=== PATIENT | female | born 1995 | race American Indian/Alaskan Native ===

== ENCOUNTER 2017-11-10 07:35 | Outpatient (CLI) | payer MEDICAID ==
[2017-11-10 07:58] VITALS: BP 128/78
--- NOTE | 2017-11-10 08:19 | History and Physical Report ---
History of Present Illness Date of examination: 11/10/17 Chief complaint: Twin gestation with ruptured membranes History of present illness: 22-year-old 012 at 36 weeks presents with ruptured membranes, she is a [facility] patient who presents via EMS. Essential history patient with contractions for a couple of days, ruptured this morning. care complicated by Churchill-Di twin gestation otherwise no issues. In triage, both babies category 1. She is having 2-3 contractions per 10 but not in pain or severe discomfort. On exam, she is 2 cm dilated. Baby is cephalic baby B breech. Patient and her mother insists on being transferred to [facility] where her doctor is. Vitals are stable at this time Past History Past Medical History: no pertinent history Past Surgical History: tonsillectomy, section (x 2) [employer] History: denies: fibroids, gonorrhea, hepatitis B, hepatitis C, herpes, HIV , syphilis Social history: , full code. denies: smoking, alcohol abuse, IV drug use - Obstetrical History Expected Date of Delivery: 12/03/17 Actual Gestation: 36 Week(s) 5 Day(s) : 4 Para: 2 Medications and Allergies Allergies Allergy/AdvReac Type Severity Reaction Status Date / Time No Known Allergies Allergy Unverified 11/10/17 07:55 Review of Systems Constitutional: no fever, no chills, no fatigue, no weakness, no chronic headaches Cardiovascular: no chest pain, no orthopnea, no palpitations, no syncope, no lightheadedness, no shortness of breath, no dyspnea on exertion, no high blood pressure, no decreased exercise tolerance Respiratory: no cough, no cough with sputum, no shortness of breath, no dyspnea on exertion Breasts: deferred Gastrointestinal: no abdominal pain, no nausea, no vomiting Genitourinary: leakage of fluid, contractions, no vaginal bleeding - Vital Signs Vital signs: Vital Signs Temp Pulse Resp BP Pulse Ox 98.5 F 84 22 128/78 97 11/10/17 07:56 11/10/17 07:56 11/10/17 07:56 11/10/17 07:56 11/10/17 07:56 Temp Pulse Resp BP Pulse Ox 98.5 F 84 22 128/78 97 11/10/17 07:56 11/10/17 07:56 11/10/17 07:56 11/10/17 07:56 11/10/17 07:56 - Physical Exam Cardiovascular: Regular rate, Normal S1, Normal S2 Lungs: Positive: Clear to auscultation, Normal air movement Abdomen: Positive: normal appearance, soft. Negative: distention, tenderness, guarding, rigidity Uterus: Positive: enlarged (Difficult to examine due to body habitus). Negative : tender Results All other labs normal. Assessment and Plan A: 22-year-old at 36+5 weeks Churchill-Di twins with ruptured membranes -Cat 1 tracing x 2 -2 prior C-sections P: -She insists on being transferred from [place] to [facility]. Spent some time discussing with her and her mother about the risks to her and her baby, advised we proceed with here at [facility], patient refuses. She provided contact number to [facility] physician in [facility]. -As patient's vitals currently stable, she is 2 cm with contractions which are not painful, will transfer patient to her physician. Spoke with Dr. David Minaya [facility] who was accepted the patient. -Will transfer patient [facility] now - Patient Problems (1) 36 to 37 weeks gestation of Current Visit: Yes Status: Acute (2) Twin gestation in third trimester Current Visit: Yes Status: Acute (3) History of 2 sections Current Visit: Yes Status: Acute (4) Ruptured, membranes, premature Current Visit: Yes Status: Acute
[2017-11-10] MEDS ORDERED: LACTATED RINGERS 500 ML IV ONE (08:26)
--- NOTE | 2017-11-10 09:50 | Event Note ---
Date: 11/10/17 Walked in to triage to see another patient, a grand multipara who was 6 cm dilated. Was approached by Ms Gianni (patient's /partner) who apparently arrived. He wanted to discuss possibly canceling transfer, he states that he lives an hour away and delivering at this hospital will be more convenient for him. Walked over to patient to ask about 's request, she wanted to know if she stayed with the baby delivered today. I told her that the baby will be delivered today here or even if she is transferred to [facility]. I explained that the EMS is 2 minutes away. I then advised them that I will deal with the grand multipara in labor and outcome back later to discuss this further. On returning back to triage, it appears EMS had already arrived and patient was being wheeled out of the hospital.
== END 2017-11-10 09:35 | disposition other institution (70) ==
LOC: TRG 07:35
PROVIDERS: ATTEND Obstetrics & Gynecology Gynecology
DX: O47.03 False labor before 37 completed weeks of gestation, third trimester (principal); Z3A.36 36 weeks gestation of pregnancy
CPT/HCPCS: 59025

== ENCOUNTER 2020-07-31 22:21 | Emergency (ER) | payer MEDICAID, OTHER ==
[2020-07-31] MEDS ORDERED: LORazepam 2 MG/ML VIAL IV ONE (22:39)
[2020-07-31] MEDS ORDERED: ONDANSETRON 4 MG/2 ML INJ IV ONE (22:39)
[2020-07-31 22:41] VITALS: BP 115/63
[2020-07-31] MEDS ORDERED: SODIUM CHLORIDE 0.9% 1000 ML 1,000 ML IV ONE (22:41)
--- NOTE | 2020-07-31 22:58 | Emergency Department Report ---
ED General Adult HPI - General Chief complaint: Abdominal Pain Stated complaint: VOMITING Time Seen by Provider: 07/31/20 22:35 Source: patient Mode of arrival: Stretcher Limitations: No Limitations - History of Present Illness Initial comments: Patient is a 24-year-old female who presents with nausea and vomiting that is been going on since 8 PM patient states that she has vomited multiple times there is no blood in the vomit she denies having any change in her bowel movements no diarrhea. She denies having any abdominal pain but she feels a pressure in her chest. Patient states that she has 5 children and has had C- sections before but no medical problems she denies having any dysuria or any vaginal bleeding. Patient also admits to smoking marijuana she last smoked around 2 PM Severity scale (0 -10): 1 - Related Data Previous Rx's Medication Instructions Recorded Last Taken Type Ondansetron [Zofran Odt] 4 mg PO Q8HR #21 tab.rapdis 08/01/20 Unknown Rx Allergies Allergy/AdvReac Type Severity Reaction Status Date / Time No Known Allergies Allergy Unverified 11/10/17 07:55 ED Review of Systems ROS: Stated complaint: VOMITING Other details as noted in HPI Constitutional: denies: chills, fever Eyes: denies: eye pain, eye discharge, vision change ENT: denies: ear pain, throat pain Respiratory: denies: cough, shortness of breath, wheezing Cardiovascular: denies: chest pain, palpitations Endocrine: no symptoms reported Gastrointestinal: denies: abdominal pain, nausea, diarrhea Genitourinary: denies: urgency, dysuria, discharge Musculoskeletal: denies: back pain, joint swelling, arthralgia Skin: denies: rash, lesions Neurological: denies: headache, weakness, paresthesias Psychiatric: denies: anxiety, depression Hematological/Lymphatic: denies: easy bleeding, easy bruising ED Past Medical Hx - Past Medical History Hx Hypertension: No Hx Diabetes: No Hx Deep Vein Thrombosis: No Hx Renal Disease: No Hx Sickle Cell Disease: No Hx Seizures: No Hx Asthma: No Hx HIV: No - Surgical History Additional Surgical History: C-Sections x4 oral sugery - Social History Smoking Status: Never Smoker - Medications Home Medications: Home Medications Medication Instructions Recorded Confirmed Last Taken Type Ondansetron [Zofran Odt] 4 mg PO Q8HR #21 tab.rapdis 08/01/20 Unknown Rx ED Physical Exam - General Limitations: No Limitations General appearance: alert, in no apparent distress - Head Head exam: Present: atraumatic, normocephalic - Eye Eye exam: Present: normal appearance - ENT ENT exam: Present: mucous membranes moist - Neck Neck exam: Present: normal inspection - Respiratory Respiratory exam: Present: normal lung sounds bilaterally. Absent: respiratory distress - Cardiovascular Cardiovascular Exam: Present: regular rate, normal rhythm. Absent: systolic murmur, diastolic murmur, rubs, gallop - GI/Abdominal GI/Abdominal exam: Present: soft, normal bowel sounds - Extremities Exam Extremities exam: Present: normal inspection - Back Exam Back exam: Present: normal inspection - Neurological Exam Neurological exam: Present: alert, oriented X3 - Psychiatric Psychiatric exam: Present: normal affect, normal mood - Skin Skin exam: Present: warm, dry, intact, normal color. Absent: rash ED Course Vital Signs 07/31/20 22:39 Temperature 98.7 F Pulse Rate 69 Respiratory 18 Rate Blood Pressure 115/63 [Right] O2 Sat by Pulse 100 Oximetry ED Medical Decision Making - Lab Data Result diagrams: 07/31/20 23:26 07/31/20 23:26 - Medical Decision Making Cdx: Marijuana intoxication ddx: Dehyration, Anxiety, GERD I will get blood work, IV fluids, cxr and will re-evaluate the patient Critical care attestation.: If time is entered above; I have spent that time in minutes in the direct care of this critically ill patient, excluding procedure time. ED Disposition Clinical Impression: Marijuana abuse Nausea and vomiting Qualifiers: Vomiting type: unspecified Vomiting Intractability: unspecified Qualified Code(s): R11.2 - Nausea with vomiting, unspecified Disposition: DC-01 TO HOME OR SELFCARE Is pt being admited?: No Does the pt Need Aspirin: No Condition: Stable Instructions: Abdominal Pain (ED) Prescriptions: Ondansetron [Zofran Odt] 4 mg PO Q8HR #21 tab.rapdis Referrals: PRIMARY CARE,MD [Primary Care Provider] - 3-5 Days
[2020-07-31 23:46] LABS: Basophils % (Auto) 0.2 % (0.0-1.8); Eosinophils # (Auto) 0.1 K/mm3 (0.0-0.4); Eosinophils % (Auto) 0.9 % (0.0-4.3); Hematocrit 37.8 % (30.3-42.9); Hemoglobin 12.8 gm/dl (10.1-14.3); Lymphocytes # (Auto) 2.1 K/mm3 (1.2-5.4); Lymphocytes % (Auto) 17.4 % (13.4-35.0); Mean Corpuscular HGB Conc 34 % (30-34); Mean Corpuscular Volume 94 fl (79-97); Monocytes # (Auto) 0.6 K/mm3 (0.0-0.8); Monocytes % (Auto) 4.9 % (0.0-7.3); Platelet Count 212 K/mm3 (140-440); Red Blood Count 4.03 M/mm3 (3.65-5.03); Red Cell Distribution Width 13.6 % (13.2-15.2)
[2020-08-01 00:21] LABS: Alanine Aminotransferase 18 units/L (7-56); Albumin 3.8 g/dL (3.9-5); Blood Urea Nitrogen 13 mg/dL (7-17); Calcium 8.8 mg/dL (8.4-10.2); Hemolysis Index 28
[2020-08-01 00:24] LABS: BUN/Creatinine Ratio 22
--- NOTE | 2020-08-01 01:00 | XRay Report ---
CHEST 1 VIEW 0028 INDICATION / CLINICAL INFORMATION: nausea COMPARISON: None available. FINDINGS: SUPPORT DEVICES: None HEART / MEDIASTINUM: No significant abnormality. LUNGS / PLEURA: Detail is low due to the patient's size. Poor degree of inspiration is seen. No obvio us acute infiltrates are noted. No pneumothorax. ADDITIONAL FINDINGS: No significant additional findings. IMPRESSION: No significant acute abnormality Signer Name: Alexander Carvalho MD Signed: 08/01/2020 12:56 AM Workstation Name: [id number]
[2020-08-01] MEDS ORDERED: FAMOTIDINE 20 MG TAB PO ONE (01:45)
[2020-08-01] MEDS ORDERED: ALUM-MAG HYDROXIDE-SIMETHICONE 200-200-20MG/5ML ORAL LIQD 30 ML PO ONE (01:45)
[2020-08-01] MEDS ORDERED: LIDOCAINE VISCOUS 2% 15 ML ORAL LIQD PO ONE (01:45)
[2020-08-01] MEDS ORDERED: HALOPERIDOL LACTATE 5 MG/1 ML INJ IM ONE (04:50)
[2020-08-01] MEDS ORDERED: CAPSAICIN 0.075% CREAM 60 GM TP SCH (08:00)
== END 2020-08-01 02:30 | disposition home or self-care (01) ==
LOC: ED 22:21
DX: R11.2 Nausea with vomiting, unspecified (principal); F12.10 Cannabis abuse, uncomplicated; Z98.890 Other specified postprocedural states; Z79.899 Other long term (current) drug therapy
CPT/HCPCS: 36415; 71045; 80053; 83690; 84702; 85025; 96361; 96374; 96375; 99284; J2060; J2405; J7030

== ENCOUNTER 2021-02-26 11:11 | Emergency (ER) | payer OTHER ==
[2021-02-26] MEDS ORDERED: SODIUM CHLORIDE 0.9% 1000 ML 1,000 ML IV ONE (11:14)
--- NOTE | 2021-02-26 11:18 | Emergency Department Report ---
ED Syncope HPI - General Stated Complaint: SYNCOPE Time Seen by Provider: 02/26/21 11:14 - History of Present Illness Initial Comments: Patient presents secondary to a syncopal event. She felt dizzy and lightheaded. She was at home. She states that she had gone outside to try to get some cool air. When going back in, she still felt dizzy and lightheaded. The next thing she knew, somebody was screaming. She woke up on the ground. EMS had been ca lled. The patient was transported here. Upon arrival, patient has no complaint. She denies chest pain or back pain. She has no abdominal pain. She has had no vaginal bleeding or dysuria. She is not been leaking fluid. She is currently a G5, P4 at 28 weeks gestation. There have been no problems with this current . She has never fainted like this before. - Related Data Allergies/Adverse Reactions: Allergies No Known Allergies Allergy (Verified 02/26/21 11:17) Home Medications: Ambulatory Orders Ondansetron [Zofran Odt] 4 mg PO Q8HR #21 tab.rapdis 08/01/20 ED Review of Systems ROS: Stated complaint: SYNCOPE Other details as noted in HPI Comment: All other systems reviewed and negative Constitutional: denies: fever Eyes: denies: vision change ENT: denies: epistaxis Respiratory: denies: cough Cardiovascular: denies: chest pain Endocrine: denies: unexplained weight loss Gastrointestinal: denies: abdominal pain Genitourinary: denies: dysuria Musculoskeletal: denies: back pain Skin: denies: rash Neurological: denies: headache Hematological/Lymphatic: denies: easy bruising ED Past Medical Hx - Past Medical History Hx Hypertension: No Hx Diabetes: No Hx Deep Vein Thrombosis: No Hx Renal Disease: No Hx Sickle Cell Disease: No Hx Seizures: No Hx Asthma: No Hx HIV: No - Surgical History Additional Surgical History: C-Sections x4 oral sugery - Social History Smoking Status: Never Smoker - Medications Home Medications: Home Medications Medication Instructions Recorded Confirmed Last Taken Type Ondansetron [Zofran Odt] 4 mg PO Q8HR #21 tab.rapdis 08/01/20 Unknown Rx ED Physical Exam - General Limitations: No Limitations, Other (Pulse ox noted and normal by EMS) General appearance: alert, in no apparent distress - Head Head exam: Present: atraumatic, normocephalic - Eye Eye exam: Present: normal appearance, EOMI. Absent: scleral icterus - ENT ENT exam: Present: normal orophraynx, normal external ear exam - Neck Neck exam: Present: normal inspection. Absent: meningismus - Respiratory Respiratory exam: Present: normal lung sounds bilaterally. Absent: respiratory distress - Cardiovascular Cardiovascular Exam: Present: regular rate, normal rhythm - GI/Abdominal GI/Abdominal exam: Present: soft, mass (Gravid uterus that is nontender and consistent with dates). Absent: tenderness - Extremities Exam Extremities exam: Present: normal capillary refill. Absent: calf tenderness - Back Exam Back exam: Absent: CVA tenderness (R), CVA tenderness (L) - Neurological Exam Neurological exam: Present: alert, oriented X3, CN II-XII intact. Absent: motor sensory deficit - Psychiatric Psychiatric exam: Present: normal affect, normal mood - Skin Skin exam: Present: warm, dry ED Course Vital Signs 02/26/21 02/26/21 02/26/21 11:12 12:12 12:13 Temperature 98 F Pulse Rate 82 84 Respiratory 14 19 Rate Blood Pressure Blood Pressure 96/59 93/46 [Left] O2 Sat by Pulse 100 100 100 Oximetry 02/26/21 12:20 Temperature 98 F Pulse Rate 82 Respiratory 14 Rate Blood Pressure 96/59 Blood Pressure [Left] O2 Sat by Pulse 100 Oximetry - Reevaluation(s) Reevaluation #1: 02/26/21 11:17 EMS was met upon arrival. IV fluids were ordered. Old records reviewed. - Laceration /Wound Repair Face Wound Location: head, face Wound Length (cm): 3 Wound's Depth, Shape: superficial Wound Explored: clean Irrigated w/ Saline (ccs): 50 Betadine Prep?: Yes Wound Repaired With: Dermabond Sterile Dressing Applied?: Yes ED Medical Decision Making - Lab Data Result diagrams: 02/26/21 11:46 02/26/21 11:46 Critical Care Time: No Critical care attestation.: If time is entered above; I have spent that time in minutes in the direct care of this critically ill patient, excluding procedure time. ED Disposition Clinical Impression: Transient hypotension Syncope Qualifiers: Syncope type: unspecified Qualified Code(s): R55 - Syncope and collapse Disposition: 01 HOME / SELF CARE / HOMELESS Is pt being admited?: Yes Condition: Stable Instructions: Syncope (ED) Referrals: PRIMARY CARE,MD [Primary Care Provider] - 3-5 Days
[2021-02-26 12:07] LABS: Basophils % (Auto) 0.2 % (0.0-1.8); Eosinophils # (Auto) 0.2 K/mm3 (0.0-0.4); Eosinophils % (Auto) 1.6 % (0.0-4.3); Hematocrit 32.7 % (30.3-42.9); Hemoglobin 10.7 gm/dl (10.1-14.3); Lymphocytes # (Auto) 1.5 K/mm3 (1.2-5.4); Mean Corpuscular HGB Conc 33 % (30-34); Mean Corpuscular Volume 92 fl (79-97); Monocytes # (Auto) 0.8 K/mm3 (0.0-0.8); Monocytes % (Auto) 7.3 % (0.0-7.3); Platelet Count 230 K/mm3 (140-440); Red Blood Count 3.57 M/mm3 (3.65-5.03); Red Cell Distribution Width 13.1 % (13.2-15.2)
[2021-02-26 12:28] LABS: Blood Urea Nitrogen 8 mg/dL (7-17); Calcium 8.6 mg/dL (8.4-10.2); Hemolysis Index 3
[2021-02-26 12:31] LABS: BUN/Creatinine Ratio 20
[2021-02-26 13:16] LABS: Bacteria,Urine 1+ /HPF (Negative); Bilirubin,Urine NEG (Negative); Blood,Urine NEG (Negative); Color,Urine Yellow (Yellow); Mucus,Urine 1+ /HPF; Urobilinogen,Urine < 2.0 mg/dL (<2.0)
[2021-02-26 14:23] VITALS: BP 126/77
--- NOTE | 2021-02-26 18:01 | Electrocardiograph Report ---
[facility] Test Date: 2021-02-26 Test Time: 12:45:19 Pat Name: NEEMA CALIXTO Department: Room: Gender: F [employer] Specialist: bobbi : 1995 Requested By: MARGARITO REBOLLEDO Order Number: [id number] Reading MD: Karoline Mulligan Measurements Intervals [place] Rate: 80 P: 41 MD: 121 QRS: 17 QRSD: 79 T: 7 QT: 373 QTc: 431 Interpretive Statements Sinus rhythm No previous ECG available for comparison Electronically Signed On 02-26-2021 18:00:45 EST by Karoline Mulligan
== END 2021-02-26 14:30 | disposition home or self-care (01) ==
LOC: ED 11:11
DX: O26.893 Other specified pregnancy related conditions, third trimester (principal); I95.9 Hypotension, unspecified; R55 Syncope and collapse; Z3A.23 23 weeks gestation of pregnancy
CPT/HCPCS: 36415; 80048; 81001; 82140; 85025; 93005; 96360; 99284